=== PATIENT | female | born 1945 | race Caucasian/White ===

== ENCOUNTER 2021-06-13 10:45 | Inpatient (IN) ==
[2021-06-13 11:34] LABS: Basophils % 0.3 %; Eosinophils # 0.3 K/mcL (0.0-0.6); Eosinophils % 2.8 %; Hematocrit 38.7 % (35.3-44.9); Immature Granulocytes % 0.2 % (0-4); Lymphocytes # 2.2 K/mcL (0.6-4.6); Mean Corpuscular HGB Conc 33.6 g/dL (31.6-35.5); Mean Corpuscular Hemoglobin 29.5 pg (28.0-33.3); Mean Corpuscular Volume 87.8 fL (83.0-100.0); Monocytes # 0.5 K/mcL (0.0-1.3); Monocytes % 5.8 %; Neutrophils # 5.8 K/mcL (1.6-8.9); Platelet Count 364 K/mcL (140-400); Red Blood Count 4.41 M/mcL (3.82-4.97); Red Cell Distribution Width 12.9 % (11.5-14.5); Segmented Neutrophils % 65.9 %; White Blood Count 8.8 K/mcL (4.3-11.1)
[2021-06-13 11:48] LABS: Prothrombin Time 11.4 Seconds (9.4-12.1)
[2021-06-13 11:51] LABS: Activated Partial Thrombo Time 28.4 Seconds (26.0-36.0)
[2021-06-13 11:58] LABS: BUN/Creatinine Ratio 18 (6-26); Blood Urea Nitrogen 17 mg/dL (8-23); Calcium 10.2 mg/dL (8.6-10.3); Carbon Dioxide 24 mEq/L (23-29); Chloride 94 mEq/L (98-107); Creatine Kinase 112 Units/L (30-223); Glucose 147 mg/dL (70-105); Osmolality,Calculated 272 (280-300); Potassium 3.7 mEq/L (3.5-5.1); Sodium 129 mEq/L (136-145); eGFR For African Americans > 60 (> 60); eGFR For Non-African Americans 57 (> 60)
[2021-06-13] MEDS ORDERED: 0.9 % Sodium Chloride 1,000 ML IVC ONE (12:07)
[2021-06-13 12:11] LABS: Troponin I 0.16 ng/mL (< 0.04)
[2021-06-13] MEDS ORDERED: *HR* Heparin 5,000 UNIT/ML VIAL IVP ONE (12:13)
[2021-06-13] MEDS ORDERED: *HR* Heparin 5,000 UNIT/ML VIAL IVP PRN ×2 (12:13)
[2021-06-13] MEDS ORDERED: Perflutren Lipid Microsphere 1.3 ML in 0.9 % Sodium Chloride 8.7 ML IVP PRN (12:29)
[2021-06-13] MEDS: Heparin 25,000UNIT/250ML 1/2NS 25,000 UNIT/250 ML IV.SOLN IVC SCH ×2 (12:51→22:18)
[2021-06-13] MEDS ORDERED: D5% in Water 1,000 ML IVC PRN (13:36)
[2021-06-13] MEDS ORDERED: Naloxone 0.4 MG/ML INJ IVP PRN (13:36)
[2021-06-13] MEDS ORDERED: Dextrose Gel 15 GM/37.5 ML TUBE PO PRN ×2 (13:36)
[2021-06-13] MEDS ORDERED: Acetaminophen 325 MG TABLET PO PRN (13:36)
[2021-06-13] MEDS ORDERED: *HR* Dextrose 50 % in Water (Syg) 50 ML SYRINGE IVP PRN (13:36)
[2021-06-13] MEDS ORDERED: Nitroglycerin 0.4 MG TAB.SUBL SL PRN (13:42)
[2021-06-13] MEDS: Isosorbide MONOnitrate (24 HR) 30 MG TAB.ER.24H PO SCH (14:13)
[2021-06-13] MEDS: Aspirin 81 MG TAB.CHEW PO SCH (14:17)
[2021-06-13] MEDS: Metoprolol XL (24 HR) Succ 25 MG TAB.ER.24H PO SCH (14:17)
[2021-06-13] MEDS ORDERED: ISOVUE-370 200 ML INFUS..BTL ONE (15:18)
[2021-06-13] MEDS ORDERED: Heparin 1,000 UNITS/500 mL 500 ML ONE (15:18)
[2021-06-13] MEDS ORDERED: 0.9 % Sodium Chloride 1,000 ML ONE (15:18)
[2021-06-13] MEDS ORDERED: *HR* Heparin 10,000 UNIT/10 ML VIAL ONE (15:18)
[2021-06-13] MEDS ORDERED: Nitroglycerin 1,000 MCG/5 ML VIAL IV ONE (15:18)
[2021-06-13] MEDS ORDERED: *HR* Midazolam HCl 2 MG/2 ML VIAL ONE ×2 (15:51→16:25)
[2021-06-13] MEDS ORDERED: *HR* FentaNYL (PF) 100 MCG/2 ML VIAL ONE (15:51)
[2021-06-13] MEDS: Insulin LISPRO 300 UNITS/3 ML VIAL SUBQ SCH (18:27)
[2021-06-13] MEDS: cloNIDine HCL 0.1 MG TABLET PO SCH (21:40)
[2021-06-13] MEDS: 0.9 % Sodium Chloride 1,000 ML IVC SCH (22:19)
[2021-06-13] MEDS: Budesonide/Formoterol 160/4.5 1 PUFF INH IH SCH (22:34)
[2021-06-14 05:18] LABS: Basophils # 0.1 K/mcL (0.0-0.2); Basophils % 0.6 %; Eosinophils # 0.4 K/mcL (0.0-0.6); Eosinophils % 4.3 %; Hematocrit 33.3 % (35.3-44.9); Immature Granulocytes % 0.4 % (0-4); Lymphocytes # 2.4 K/mcL (0.6-4.6); Lymphocytes % 28.5 %; Mean Corpuscular HGB Conc 32.7 g/dL (31.6-35.5); Mean Corpuscular Hemoglobin 29.2 pg (28.0-33.3); Mean Corpuscular Volume 89.3 fL (83.0-100.0); Mean Platelet Volume 10.3 fL (9.4-12.4); Monocytes # 0.7 K/mcL (0.0-1.3); Monocytes % 8.1 %; Neutrophils # 4.8 K/mcL (1.6-8.9); Platelet Count 306 K/mcL (140-400); Red Blood Count 3.73 M/mcL (3.82-4.97); Red Cell Distribution Width 13.1 % (11.5-14.5); Segmented Neutrophils % 58.1 %; White Blood Count 8.3 K/mcL (4.3-11.1)
[2021-06-14 05:20] LABS: Hemoglobin 10.9 g/dL (11.5-15.4)
[2021-06-14 05:25] LABS: BUN/Creatinine Ratio 15 (6-26); Blood Urea Nitrogen 12 mg/dL (8-23); Calcium 8.7 mg/dL (8.6-10.3); Carbon Dioxide 20 mEq/L (23-29); Chloride 104 mEq/L (98-107); Chol/HDL Ratio 3.3 (0-4.9); Cholesterol 181 mg/dL (< 200); Glucose 148 mg/dL (70-105); HDL Cholesterol 55 mg/dL (40-59); LDL Cholesterol,Calculated 101 mg/dL (< 100); Osmolality,Calculated 279 (280-300); Potassium 3.6 mEq/L (3.5-5.1); Sodium 133 mEq/L (136-145); Triglycerides 124 mg/dL (< 150); eGFR For African Americans > 60 (> 60); eGFR For Non-African Americans > 60 (> 60)
[2021-06-14 06:11] LABS: Troponin I 0.39 ng/mL (< 0.04)
[2021-06-14] MEDS: Insulin LISPRO 300 UNITS/3 ML VIAL SUBQ SCH ×3 (07:47→15:30)
[2021-06-14] MEDS: Aspirin 81 MG TAB.CHEW PO SCH (07:48)
[2021-06-14] MEDS: Isosorbide MONOnitrate (24 HR) 30 MG TAB.ER.24H PO SCH (07:48)
[2021-06-14] MEDS: Metoprolol XL (24 HR) Succ 25 MG TAB.ER.24H PO SCH (07:49)
[2021-06-14] MEDS: Nicotine 21 MG PATCH.TD24 TD SCH (07:49)
[2021-06-14] MEDS: 0.9 % Sodium Chloride 1,000 ML IVC SCH (08:15)
[2021-06-14 08:55] LABS: Estimated Average Glucose 169 mg/dl; Hemoglobin A1C 7.5 %
[2021-06-14] MEDS ORDERED: Metoprolol XL (24 HR) Succ 25 MG TAB.ER.24H PO SCH (09:00)
[2021-06-14] MEDS: Budesonide/Formoterol 160/4.5 1 PUFF INH IH SCH ×2 (10:13→19:55)
[2021-06-14] MEDS: AMILoride/HCTZ 5-50mg 1 EACH TABLET PO SCH (13:50)
[2021-06-14] MEDS: cloNIDine HCL 0.1 MG TABLET PO SCH (21:01)
[2021-06-14] MEDS: Heparin 25,000UNIT/250ML 1/2NS 25,000 UNIT/250 ML IV.SOLN IVC SCH (23:59)
[2021-06-15 06:46] LABS: Basophils % 0.5 %; Eosinophils # 0.3 K/mcL (0.0-0.6); Eosinophils % 3.2 %; Hematocrit 32.8 % (35.3-44.9); Hemoglobin 10.8 g/dL (11.5-15.4); Immature Granulocytes % 0.2 % (0-4); Lymphocytes # 2.5 K/mcL (0.6-4.6); Lymphocytes % 30.9 %; Mean Corpuscular HGB Conc 32.9 g/dL (31.6-35.5); Mean Corpuscular Hemoglobin 29.7 pg (28.0-33.3); Mean Corpuscular Volume 90.1 fL (83.0-100.0); Mean Platelet Volume 10.8 fL (9.4-12.4); Monocytes # 0.6 K/mcL (0.0-1.3); Monocytes % 7.4 %; Neutrophils # 4.8 K/mcL (1.6-8.9); Platelet Count 265 K/mcL (140-400); Red Blood Count 3.64 M/mcL (3.82-4.97); Red Cell Distribution Width 13.2 % (11.5-14.5); Segmented Neutrophils % 57.8 %; White Blood Count 8.2 K/mcL (4.3-11.1)
[2021-06-15 06:53] LABS: BUN/Creatinine Ratio 16 (6-26); Blood Urea Nitrogen 14 mg/dL (8-23); Calcium 9.2 mg/dL (8.6-10.3); Carbon Dioxide 20 mEq/L (23-29); Chloride 102 mEq/L (98-107); Glucose 159 mg/dL (70-105); Osmolality,Calculated 278 (280-300); Potassium 3.6 mEq/L (3.5-5.1); Sodium 132 mEq/L (136-145); eGFR For African Americans > 60 (> 60); eGFR For Non-African Americans > 60 (> 60)
[2021-06-15] MEDS: Budesonide/Formoterol 160/4.5 1 PUFF INH IH SCH ×2 (08:02→20:36)
[2021-06-15] MEDS: Isosorbide MONOnitrate (24 HR) 30 MG TAB.ER.24H PO SCH (09:02)
[2021-06-15] MEDS: Nicotine 21 MG PATCH.TD24 TD SCH (09:02)
[2021-06-15] MEDS: Metoprolol XL (24 HR) Succ 25 MG TAB.ER.24H PO SCH (09:02)
[2021-06-15] MEDS: Aspirin 81 MG TAB.CHEW PO SCH ×2 (09:05→11:00)
[2021-06-15] MEDS: AMILoride/HCTZ 5-50mg 1 EACH TABLET PO SCH (09:09)
[2021-06-15] MEDS: Insulin LISPRO 300 UNITS/3 ML VIAL SUBQ SCH ×3 (10:51→15:23)
[2021-06-15] MEDS: cloNIDine HCL 0.1 MG TABLET PO SCH (20:23)
[2021-06-15] MEDS ORDERED: Albuterol 2.5 MG/3 ML NEBULIZER IH ONE (21:01)
[2021-06-15] MEDS ORDERED: methylPREDNISolone 125 MG/2 ML VIAL IVP ONE (21:05)
[2021-06-15] MEDS ORDERED: Nitroglycerin 1 INCH/GM PACKET TP ONE (21:18)
[2021-06-15] MEDS ORDERED: *HR* LORazepam 2 MG/ML VIAL IVP ONE (21:35)
[2021-06-15] MEDS ORDERED: *HR* LORazepam 2 MG/ML VIAL ONE (21:35)
[2021-06-15] MEDS ORDERED: Isovue-370 500 ML BOTTLE IVP ONE (21:36)
[2021-06-15] MEDS: Ondansetron 4 MG/2 ML VIAL IVP PRN (21:50)
[2021-06-15] MEDS ORDERED: Furosemide 40 MG/4 ML VIAL IVP ONE (22:32)
[2021-06-16 01:53] LABS: Basophils % 0.1 %; Eosinophils % 0.1 %; Hematocrit 37.1 % (35.3-44.9); Hemoglobin 12.3 g/dL (11.5-15.4); Immature Granulocytes % 0.5 % (0-4); Lymphocytes # 0.8 K/mcL (0.6-4.6); Lymphocytes % 5.5 %; Mean Corpuscular HGB Conc 33.2 g/dL (31.6-35.5); Mean Corpuscular Hemoglobin 29.6 pg (28.0-33.3); Mean Corpuscular Volume 89.4 fL (83.0-100.0); Mean Platelet Volume 10.6 fL (9.4-12.4); Monocytes # 0.4 K/mcL (0.0-1.3); Monocytes % 2.7 %; Neutrophils # 13.7 K/mcL (1.6-8.9); Platelet Count 341 K/mcL (140-400); Red Blood Count 4.15 M/mcL (3.82-4.97); Red Cell Distribution Width 13.2 % (11.5-14.5); Segmented Neutrophils % 91.1 %
[2021-06-16 02:05] LABS: BUN/Creatinine Ratio 20 (6-26); Blood Urea Nitrogen 18 mg/dL (8-23); Calcium 9.3 mg/dL (8.6-10.3); Carbon Dioxide 18 mEq/L (23-29); Chloride 98 mEq/L (98-107); Glucose 286 mg/dL (70-105); Osmolality,Calculated 278 (280-300); Potassium 3.9 mEq/L (3.5-5.1); Sodium 128 mEq/L (136-145); eGFR For African Americans > 60 (> 60); eGFR For Non-African Americans 59 (> 60)
[2021-06-16] MEDS: Heparin 25,000UNIT/250ML 1/2NS 25,000 UNIT/250 ML IV.SOLN IVC SCH (02:05)
[2021-06-16] MEDS: Insulin LISPRO 300 UNITS/3 ML VIAL SUBQ SCH ×3 (07:54→17:42)
[2021-06-16] MEDS ORDERED: Perflutren Lipid Microsphere 1.3 ML in 0.9 % Sodium Chloride 8.7 ML IVP PRN (08:49)
[2021-06-16] MEDS ORDERED: Furosemide 40 MG/4 ML VIAL IVP SCH (09:00)
[2021-06-16] MEDS: Levalbuterol Neb 1.25 MG/3 ML IH SCH ×3 (10:32→19:54)
[2021-06-16] MEDS: Budesonide/Formoterol 160/4.5 1 PUFF INH IH SCH (10:36)
[2021-06-16] MEDS: Chlorhexidine Rinse 15 ML MOUTHWASH MM SCH ×2 (10:48→21:36)
[2021-06-16] MEDS: *HR* LORazepam 2 MG/ML VIAL IVP PRN ×2 (10:52→19:06)
[2021-06-16] MEDS: Metoprolol XL (24 HR) Succ 25 MG TAB.ER.24H PO SCH (10:53)
[2021-06-16] MEDS: Isosorbide MONOnitrate (24 HR) 30 MG TAB.ER.24H PO SCH (10:53)
[2021-06-16] MEDS: AMILoride/HCTZ 5-50mg 1 EACH TABLET PO SCH (10:54)
[2021-06-16] MEDS: Aspirin 81 MG TAB.CHEW PO SCH (11:01)
[2021-06-16] MEDS: Nicotine 21 MG PATCH.TD24 TD SCH (12:00)
[2021-06-16] MEDS: cloNIDine HCL 0.1 MG TABLET PO SCH (21:37)
[2021-06-16] MEDS: Insulin DETEMIR 100 UNIT/ML X5UNITS SUBQ SCH (21:46)
[2021-06-17 01:32] LABS: Basophils % 0.1 %; Hematocrit 32.8 % (35.3-44.9); Hemoglobin 11.2 g/dL (11.5-15.4); Immature Granulocytes % 0.4 % (0-4); Lymphocytes % 13.5 %; Mean Corpuscular HGB Conc 34.1 g/dL (31.6-35.5); Mean Corpuscular Hemoglobin 29.9 pg (28.0-33.3); Mean Corpuscular Volume 87.5 fL (83.0-100.0); Mean Platelet Volume 10.7 fL (9.4-12.4); Monocytes % 6.5 %; Neutrophils # 11.8 K/mcL (1.6-8.9); Platelet Count 329 K/mcL (140-400); Red Blood Count 3.75 M/mcL (3.82-4.97); Red Cell Distribution Width 13.3 % (11.5-14.5); Segmented Neutrophils % 79.5 %; White Blood Count 14.9 K/mcL (4.3-11.1)
[2021-06-17 01:49] LABS: Calcium 9.5 mg/dL (8.6-10.3); Potassium 3.7 mEq/L (3.5-5.1)
[2021-06-17] MEDS: Levalbuterol Neb 1.25 MG/3 ML IH SCH ×4 (03:43→20:11)
[2021-06-17] MEDS: Heparin 25,000UNIT/250ML 1/2NS 25,000 UNIT/250 ML IV.SOLN IVC SCH (04:07)
[2021-06-17] MEDS ORDERED: Aspirin 81 MG TAB.CHEW PO ONE (06:00)
[2021-06-17] MEDS ORDERED: CeFAZolin Syr 2,000MG/20 ML 2,000 MG/20 ML SYRINGE IVPB ONE (07:00)
[2021-06-17] MEDS: Isosorbide MONOnitrate (24 HR) 30 MG TAB.ER.24H PO SCH (08:13)
[2021-06-17] MEDS: Aspirin 81 MG TAB.CHEW PO SCH (08:13)
[2021-06-17] MEDS: AMILoride/HCTZ 5-50mg 1 EACH TABLET PO SCH (08:13)
[2021-06-17] MEDS: Metoprolol XL (24 HR) Succ 25 MG TAB.ER.24H PO SCH (08:14)
[2021-06-17] MEDS: Nicotine 21 MG PATCH.TD24 TD SCH (08:16)
[2021-06-17] MEDS: Insulin LISPRO 300 UNITS/3 ML VIAL SUBQ SCH ×3 (08:28→17:58)
[2021-06-17] MEDS: *HR* LORazepam 2 MG/ML VIAL IVP PRN ×2 (08:37→21:25)
[2021-06-17] MEDS ORDERED: Metoprolol XL (24 HR) Succ 25 MG TAB.ER.24H PO ONE (09:00)
[2021-06-17] MEDS: Insulin DETEMIR 100 UNIT/ML X5UNITS SUBQ SCH (21:19)
[2021-06-17] MEDS: cloNIDine HCL 0.1 MG TABLET PO SCH (21:19)
[2021-06-18 00:32] LABS: Basophils % 0.1 %; Eosinophils # 0.1 K/mcL (0.0-0.6); Eosinophils % 0.9 %; Hematocrit 30.3 % (35.3-44.9); Hemoglobin 10.2 g/dL (11.5-15.4); Immature Granulocytes % 0.2 % (0-4); Lymphocytes # 2.9 K/mcL (0.6-4.6); Lymphocytes % 27.1 %; Mean Corpuscular HGB Conc 33.7 g/dL (31.6-35.5); Mean Corpuscular Hemoglobin 29.7 pg (28.0-33.3); Mean Corpuscular Volume 88.1 fL (83.0-100.0); Mean Platelet Volume 10.5 fL (9.4-12.4); Monocytes # 0.9 K/mcL (0.0-1.3); Monocytes % 8.8 %; Neutrophils # 6.7 K/mcL (1.6-8.9); Platelet Count 287 K/mcL (140-400); Red Blood Count 3.44 M/mcL (3.82-4.97); Red Cell Distribution Width 13.5 % (11.5-14.5); Segmented Neutrophils % 62.9 %; White Blood Count 10.6 K/mcL (4.3-11.1)
[2021-06-18 04:10] LABS: BUN/Creatinine Ratio 36 (6-26); Blood Urea Nitrogen 35 mg/dL (8-23); Calcium 9.5 mg/dL (8.6-10.3); Carbon Dioxide 23 mEq/L (23-29); Chloride 96 mEq/L (98-107); Glucose 168 mg/dL (70-105); Osmolality,Calculated 282 (280-300); Potassium 3.8 mEq/L (3.5-5.1); Sodium 130 mEq/L (136-145); eGFR For African Americans > 60 (> 60); eGFR For Non-African Americans 56 (> 60)
[2021-06-18] MEDS: Levalbuterol Neb 1.25 MG/3 ML IH SCH ×4 (04:14→21:19)
[2021-06-18] MEDS: Isosorbide MONOnitrate (24 HR) 30 MG TAB.ER.24H PO SCH (08:21)
[2021-06-18] MEDS: Aspirin 81 MG TAB.CHEW PO SCH (08:21)
[2021-06-18] MEDS: AMILoride/HCTZ 5-50mg 1 EACH TABLET PO SCH (08:21)
[2021-06-18] MEDS: Nicotine 21 MG PATCH.TD24 TD SCH (08:21)
[2021-06-18] MEDS: Metoprolol XL (24 HR) Succ 25 MG TAB.ER.24H PO SCH (08:21)
[2021-06-18] MEDS: Insulin LISPRO 300 UNITS/3 ML VIAL SUBQ SCH ×3 (08:22→16:47)
[2021-06-18] MEDS ORDERED: Furosemide 40 MG/4 ML VIAL IVP SCH (10:15)
[2021-06-18] MEDS: Heparin 25,000UNIT/250ML 1/2NS 25,000 UNIT/250 ML IV.SOLN IVC SCH (16:40)
[2021-06-18] MEDS: Insulin DETEMIR 100 UNIT/ML X5UNITS SUBQ SCH (23:10)
[2021-06-18] MEDS: cloNIDine HCL 0.1 MG TABLET PO SCH (23:10)
[2021-06-19] MEDS: Levalbuterol Neb 1.25 MG/3 ML IH SCH ×3 (03:55→16:20)
[2021-06-19] MEDS: Ondansetron 4 MG/2 ML VIAL IVP PRN (06:30)
[2021-06-19] MEDS ORDERED: NiCARdipine 2.5 MG/10 ML Syringe IVPB ONE (06:37)
[2021-06-19] MEDS ORDERED: *HR* FentaNYL (PF) 1,000 MCG/20 ML VIAL ONE (06:49)
[2021-06-19] MEDS ORDERED: *HR* Midazolam HCl 5 MG/5 ML VIAL IVP ONE (06:49)
[2021-06-19] MEDS ORDERED: *HR* Rocuronium Bromide 50 MG/5 ML VIAL ONE (06:52)
[2021-06-19] MEDS ORDERED: *HR* Etomidate 20 MG/10 ML AMPUL IVP ONE (06:53)
[2021-06-19] MEDS ORDERED: Famotidine 20 MG/2 ML VIAL ONE (06:53)
[2021-06-19] MEDS ORDERED: Protamine Sulfate 50 MG/5 ML VIAL IVP ONE (06:58)
[2021-06-19] MEDS ORDERED: CeFAZolin 2,000 MG/120 ML BAG IVPB ONE (07:00)
[2021-06-19] MEDS: Insulin LISPRO 300 UNITS/3 ML VIAL SUBQ SCH ×3 (07:34→18:08)
[2021-06-19] MEDS ORDERED: Heparin 15,000 UNIT in 0.9 % Sodium Chloride 500 ML IV ONE (07:45)
[2021-06-19] MEDS ORDERED: Norepinephrine 4 MG in 0.9 % Sodium Chloride 250 ML IVC PRN (07:45)
[2021-06-19] MEDS ORDERED: Dextrose 50 % in Water (Vial) 30 ML, Sodium Bicarbonate 20 MEQ, Lidocaine 1% 5 ML, Insu... TH ONE ×3 (07:45)
[2021-06-19] MEDS ORDERED: Dextrose 50 % in Water (Vial) 30 ML, Sodium Bicarbonate 20 MEQ, Potassium Chloride 15 M... TH ONE (07:45)
[2021-06-19] MEDS: Metoprolol XL (24 HR) Succ 25 MG TAB.ER.24H PO SCH (07:46)
[2021-06-19 07:55] LABS: Basophils % 0.3 %; Eosinophils # 0.4 K/mcL (0.0-0.6); Eosinophils % 3.6 %; Hematocrit 33.4 % (35.3-44.9); Hemoglobin 11.1 g/dL (11.5-15.4); Immature Granulocytes % 0.4 % (0-4); Lymphocytes # 2.1 K/mcL (0.6-4.6); Lymphocytes % 21.7 %; Mean Corpuscular HGB Conc 33.2 g/dL (31.6-35.5); Mean Corpuscular Hemoglobin 29.8 pg (28.0-33.3); Mean Corpuscular Volume 89.5 fL (83.0-100.0); Mean Platelet Volume 11.3 fL (9.4-12.4); Monocytes # 0.8 K/mcL (0.0-1.3); Monocytes % 8.6 %; Neutrophils # 6.3 K/mcL (1.6-8.9); Platelet Count 320 K/mcL (140-400); Red Blood Count 3.73 M/mcL (3.82-4.97); Red Cell Distribution Width 13.2 % (11.5-14.5); Segmented Neutrophils % 65.4 %; White Blood Count 9.6 K/mcL (4.3-11.1)
[2021-06-19 08:00] LABS: BUN/Creatinine Ratio 29 (6-26); Blood Urea Nitrogen 29 mg/dL (8-23); Calcium 9.4 mg/dL (8.6-10.3); Carbon Dioxide 26 mEq/L (23-29); Chloride 94 mEq/L (98-107); Glucose 194 mg/dL (70-105); Osmolality,Calculated 277 (280-300); Potassium 3.9 mEq/L (3.5-5.1); Sodium 128 mEq/L (136-145); eGFR For African Americans > 60 (> 60); eGFR For Non-African Americans 53 (> 60)
[2021-06-19 08:19] LABS: ABG Base Excess -2 mEq/L (-2 to 3); ABG Chloride 95 mEq/L (98-107); ABG Glucose 193 mg/dL (60-95); ABG HCO3 22 mEq/L (21-27); ABG Ionized Calcium 1.16 mmol/L (1.15-1.35); ABG Oxygen Saturation 100 % (95-98); ABG PCO2 34 mmHg (35-45); ABG PH 7.42 pH Units (7.32-7.45); ABG PO2 338 mmHg (85-104); ABG TCO2 23 mEq/L (20-26)
[2021-06-19] MEDS ORDERED: Furosemide 20 MG/2 ML VIAL IVP SCH (09:00)
[2021-06-19 09:36] LABS: ABG Base Excess -2 mEq/L (-2 to 3); ABG Chloride 95 mEq/L (98-107); ABG Glucose 216 mg/dL (60-95); ABG HCO3 23 mEq/L (21-27); ABG Ionized Calcium 1.17 mmol/L (1.15-1.35); ABG Oxygen Saturation 100 % (95-98); ABG PCO2 39 mmHg (35-45); ABG PH 7.38 pH Units (7.32-7.45); ABG PO2 214 mmHg (85-104); ABG TCO2 24 mEq/L (20-26)
[2021-06-19 10:04] LABS: ABG Base Excess -3 mEq/L (-2 to 3); ABG Chloride 90 mEq/L (98-107); ABG Glucose 219 mg/dL (60-95); ABG HCO3 21 mEq/L (21-27); ABG Ionized Calcium 0.84 mmol/L (1.15-1.35); ABG Oxygen Saturation 100 % (95-98); ABG PCO2 32 mmHg (35-45); ABG PH 7.42 pH Units (7.32-7.45); ABG PO2 621 mmHg (85-104); ABG TCO2 22 mEq/L (20-26)
[2021-06-19 10:29] LABS: ABG Base Excess 0 mEq/L (-2 to 3); ABG Chloride 91 mEq/L (98-107); ABG Glucose 203 mg/dL (60-95); ABG HCO3 24 mEq/L (21-27); ABG Ionized Calcium 0.95 mmol/L (1.15-1.35); ABG Oxygen Saturation 100 % (95-98); ABG PCO2 34 mmHg (35-45); ABG PH 7.46 pH Units (7.32-7.45); ABG PO2 553 mmHg (85-104); ABG TCO2 25 mEq/L (20-26)
[2021-06-19 10:45] LABS: ABG Base Excess 1 mEq/L (-2 to 3); ABG Chloride 92 mEq/L (98-107); ABG Glucose 176 mg/dL (60-95); ABG HCO3 26 mEq/L (21-27); ABG Ionized Calcium 1.14 mmol/L (1.15-1.35); ABG Oxygen Saturation 100 % (95-98); ABG PCO2 42 mmHg (35-45); ABG PH 7.39 pH Units (7.32-7.45); ABG PO2 496 mmHg (85-104); ABG TCO2 27 mEq/L (20-26)
[2021-06-19] MEDS ORDERED: Tranexamic Acid 1,000 MG/10 ML VIAL ONE (10:55)
[2021-06-19 11:25] LABS: ABG Base Excess -2 mEq/L (-2 to 3); ABG Chloride 96 mEq/L (98-107); ABG Glucose 162 mg/dL (60-95); ABG HCO3 24 mEq/L (21-27); ABG Ionized Calcium 1.37 mmol/L (1.15-1.35); ABG Oxygen Saturation 99 % (95-98); ABG PCO2 43 mmHg (35-45); ABG PH 7.35 pH Units (7.32-7.45); ABG PO2 132 mmHg (85-104); ABG TCO2 25 mEq/L (20-26)
[2021-06-19] MEDS ORDERED: Potassium Chloride 40 MEQ/200 ML BAG IVPB PRN (11:28)
[2021-06-19] MEDS ORDERED: Insulin Regular, Human 100 UNIT/ML IV PRN (11:28)
[2021-06-19] MEDS ORDERED: *HR* Dextrose 50 % in Water (Syg) 50 ML SYRINGE IVP PRN (11:28)
[2021-06-19] MEDS ORDERED: Calcium Gluconate 1gm/50mL 1 GM/50 ML BAG IVPB PRN (11:30)
[2021-06-19] MEDS ORDERED: Acetaminophen 650 MG RECTAL SUPP RC PRN (11:30)
[2021-06-19] MEDS ORDERED: 0.9 % Sodium Chloride w KCl 20 MEQ/1,000 ML MLS IVC SCH (11:30)
[2021-06-19] MEDS: Albumin Human 5% 12.5 GM/250 ML IV.SOLN IVPB PRN ×2 (12:10→14:30)
[2021-06-19 12:25] LABS: ABG Base Excess 0 mEq/L (-2 to 3); ABG HCO3 24 mEq/L (21-27); ABG Oxygen Saturation 100 % (95-98); ABG PCO2 36 mmHg (35-45); ABG PH 7.44 pH Units (7.32-7.45); ABG PO2 465 mmHg (85-104); ABG TCO2 25 mEq/L (20-26); Blood Gas Modality ASSIST CONTROL; Blood Gas VT 600 cc
[2021-06-19 12:33] LABS: Basophils # 0.1 K/mcL (0.0-0.2); Basophils % 0.3 %; Eosinophils # 0.6 K/mcL (0.0-0.6); Lymphocytes # 3.2 K/mcL (0.6-4.6); Lymphocytes % 15.8 %; Mean Corpuscular HGB Conc 34.1 g/dL (31.6-35.5); Mean Corpuscular Hemoglobin 30.1 pg (28.0-33.3); Mean Corpuscular Volume 88.2 fL (83.0-100.0); Mean Platelet Volume 10.5 fL (9.4-12.4); Monocytes # 1.5 K/mcL (0.0-1.3); Monocytes % 7.4 %; Neutrophils # 14.5 K/mcL (1.6-8.9); Platelet Count 246 K/mcL (140-400); Red Blood Count 3.06 M/mcL (3.82-4.97); Red Cell Distribution Width 13.2 % (11.5-14.5); Segmented Neutrophils % 72.5 %
[2021-06-19 12:34] LABS: Hemoglobin 9.2 g/dL (11.5-15.4)
[2021-06-19 12:49] LABS: INR 1.3; Prothrombin Time 14.2 Seconds (9.4-12.1)
[2021-06-19] MEDS: Pantoprazole 40 MG VIAL IVP SCH (12:59)
[2021-06-19] MEDS: Metoclopramide 10 MG/2 ML VIAL IVP SCH ×3 (13:00→23:39)
[2021-06-19] MEDS: AMILoride/HCTZ 5-50mg 1 EACH TABLET PO SCH (13:03)
[2021-06-19] MEDS: Isosorbide MONOnitrate (24 HR) 30 MG TAB.ER.24H PO SCH (13:03)
[2021-06-19] MEDS: Nicotine 21 MG PATCH.TD24 TD SCH (13:06)
[2021-06-19 13:30] LABS: BUN/Creatinine Ratio 29 (6-26); Blood Urea Nitrogen 25 mg/dL (8-23); Calcium 9.4 mg/dL (8.6-10.3); Carbon Dioxide 24 mEq/L (23-29); Chloride 99 mEq/L (98-107); Glucose 137 mg/dL (70-105); Magnesium 2.5 mg/dL (1.6-2.6); Osmolality,Calculated 279 (280-300); Potassium 4.5 mEq/L (3.5-5.1); Sodium 131 mEq/L (136-145); eGFR For African Americans > 60 (> 60); eGFR For Non-African Americans > 60 (> 60)
[2021-06-19] MEDS: Norepinephrine 4 MG/254 ML IV.SOLN IVC SCH ×2 (14:25→19:18)
[2021-06-19] MEDS: Heparin 25,000UNIT/250ML 1/2NS 25,000 UNIT/250 ML IV.SOLN IVC SCH (14:26)
[2021-06-19] MEDS: niCARdipine 20 MG/200 ML MLS IVC SCH ×4 (15:31→23:33)
[2021-06-19] MEDS: *HR* FentaNYL (PF) 100 MCG/2 ML VIAL IVP PRN ×2 (15:37→19:32)
[2021-06-19] MEDS: *HR* OxyCODONE/APAP 5/325 TABLET PO PRN ×2 (15:53→21:53)
[2021-06-19] MEDS: CeFAZolin 2 GM/120 ML BAG IVPB SCH ×2 (15:54→23:38)
[2021-06-19 17:26] LABS: ABG Base Excess -1 mEq/L (-2 to 3); ABG HCO3 24 mEq/L (21-27); ABG Oxygen Saturation 98 % (95-98); ABG PCO2 40 mmHg (35-45); ABG PH 7.38 pH Units (7.32-7.45); ABG PO2 103 mmHg (85-104); ABG TCO2 25 mEq/L (20-26); Blood Gas Modality CPAP/PS
[2021-06-19] MEDS: cloNIDine HCL 0.1 MG TABLET PO SCH (19:32)
[2021-06-19] MEDS: Insulin DETEMIR 100 UNIT/ML X5UNITS SUBQ SCH (19:32)
[2021-06-19] MEDS: Chlorhexidine Rinse 15 ML MOUTHWASH MM SCH (19:51)
[2021-06-20] MEDS: Levalbuterol Neb 1.25 MG/3 ML IH SCH ×5 (00:15→20:32)
[2021-06-20] MEDS: *HR* OxyCODONE/APAP 5/325 TABLET PO PRN ×3 (03:22→16:19)
[2021-06-20] MEDS: niCARdipine 20 MG/200 ML MLS IVC SCH ×6 (03:26→23:05)
[2021-06-20 03:28] LABS: Basophils % 0.2 %; Eosinophils % 0.2 %; Hematocrit 29.2 % (35.3-44.9); Hemoglobin 9.6 g/dL (11.5-15.4); Immature Granulocytes % 0.5 % (0-4); Lymphocytes # 1.9 K/mcL (0.6-4.6); Lymphocytes % 14.1 %; Mean Corpuscular HGB Conc 32.9 g/dL (31.6-35.5); Mean Corpuscular Hemoglobin 30.1 pg (28.0-33.3); Mean Corpuscular Volume 91.5 fL (83.0-100.0); Mean Platelet Volume 10.8 fL (9.4-12.4); Monocytes # 1.7 K/mcL (0.0-1.3); Monocytes % 12.3 %; Neutrophils # 9.9 K/mcL (1.6-8.9); Platelet Count 245 K/mcL (140-400); Red Blood Count 3.19 M/mcL (3.82-4.97); Red Cell Distribution Width 13.6 % (11.5-14.5); Segmented Neutrophils % 72.7 %; White Blood Count 13.6 K/mcL (4.3-11.1)
[2021-06-20 03:36] LABS: INR 1.2; Prothrombin Time 13.5 Seconds (9.4-12.1)
[2021-06-20 03:52] LABS: BUN/Creatinine Ratio 29 (6-26); Blood Urea Nitrogen 30 mg/dL (8-23); Calcium 9.3 mg/dL (8.6-10.3); Carbon Dioxide 23 mEq/L (23-29); Chloride 101 mEq/L (98-107); Glucose 133 mg/dL (70-105); Magnesium 2.2 mg/dL (1.6-2.6); Osmolality,Calculated 284 (280-300); Sodium 133 mEq/L (136-145); eGFR For African Americans > 60 (> 60); eGFR For Non-African Americans 51 (> 60)
[2021-06-20] MEDS: Norepinephrine 4 MG/254 ML IV.SOLN IVC SCH ×2 (05:03→19:19)
[2021-06-20] MEDS: Metoclopramide 10 MG/2 ML VIAL IVP SCH ×4 (05:11→23:03)
[2021-06-20] MEDS: *HR* FentaNYL (PF) 100 MCG/2 ML VIAL IVP PRN ×2 (05:11→09:22)
[2021-06-20] MEDS: Ondansetron 4 MG/2 ML VIAL IVP PRN (06:31)
[2021-06-20] MEDS: Insulin LISPRO 300 UNITS/3 ML VIAL SUBQ SCH ×3 (08:48→16:38)
[2021-06-20] MEDS: Pantoprazole 40 MG VIAL IVP SCH (09:21)
[2021-06-20] MEDS: Aspirin Enteric Coated 81 MG Tablet PO SCH (09:21)
[2021-06-20] MEDS: Isosorbide MONOnitrate (24 HR) 30 MG TAB.ER.24H PO SCH (09:21)
[2021-06-20] MEDS: AMILoride/HCTZ 5-50mg 1 EACH TABLET PO SCH (09:21)
[2021-06-20] MEDS: Furosemide 20 MG/2 ML VIAL IVP SCH ×2 (09:21→16:19)
[2021-06-20] MEDS: *HR* LORazepam 2 MG/ML VIAL IVP PRN ×2 (09:22→17:39)
[2021-06-20] MEDS: Chlorhexidine Rinse 15 ML MOUTHWASH MM SCH ×2 (09:22→19:48)
[2021-06-20] MEDS: Nicotine 21 MG PATCH.TD24 TD SCH (09:22)
[2021-06-20] MEDS ORDERED: D5% in Water 1,000 ML IVC PRN (09:32)
[2021-06-20] MEDS ORDERED: *HR* Dextrose 50 % in Water (Syg) 50 ML SYRINGE IVP PRN (09:32)
[2021-06-20] MEDS ORDERED: Dextrose Gel 15 GM/37.5 ML TUBE PO PRN ×2 (09:32)
[2021-06-20] MEDS: *HR* Heparin 5,000 UNIT/ML VIAL SQ SCH ×2 (11:09→17:29)
[2021-06-20] MEDS: cloNIDine HCL 0.1 MG TABLET PO SCH ×2 (19:48→19:49)
[2021-06-20] MEDS ORDERED: flumazeniL 0.5 MG/5 ML VIAL IVP ONE ×2 (20:01→20:05)
[2021-06-20 20:19] LABS: ABG Base Excess -3 mEq/L (-2 to 3); ABG HCO3 21 mEq/L (21-27); ABG Oxygen Saturation 100 % (95-98); ABG PCO2 33 mmHg (35-45); ABG PH 7.41 pH Units (7.32-7.45); ABG PO2 427 mmHg (85-104); ABG TCO2 22 mEq/L (20-26)
[2021-06-20] MEDS: Insulin DETEMIR 100 UNIT/ML X5UNITS SUBQ SCH (20:38)
[2021-06-20] MEDS ORDERED: Insulin LISPRO 300 UNITS/3 ML VIAL SUBQ SCH (21:00)
[2021-06-21] MEDS: Norepinephrine 4 MG/254 ML IV.SOLN IVC SCH (03:08)
[2021-06-21] MEDS: Levalbuterol Neb 1.25 MG/3 ML IH SCH ×2 (03:26→10:51)
[2021-06-21 03:28] LABS: Basophils % 0.2 %; Eosinophils % 0.2 %; Hematocrit 27.4 % (35.3-44.9); Hemoglobin 9.1 g/dL (11.5-15.4); Immature Granulocytes % 0.5 % (0-4); Lymphocytes # 2.2 K/mcL (0.6-4.6); Lymphocytes % 16.9 %; Mean Corpuscular HGB Conc 33.2 g/dL (31.6-35.5); Mean Corpuscular Hemoglobin 29.9 pg (28.0-33.3); Mean Corpuscular Volume 90.1 fL (83.0-100.0); Mean Platelet Volume 11.2 fL (9.4-12.4); Monocytes # 1.4 K/mcL (0.0-1.3); Monocytes % 10.3 %; Neutrophils # 9.5 K/mcL (1.6-8.9); Platelet Count 235 K/mcL (140-400); Red Blood Count 3.04 M/mcL (3.82-4.97); Red Cell Distribution Width 13.4 % (11.5-14.5); Segmented Neutrophils % 71.9 %; White Blood Count 13.2 K/mcL (4.3-11.1)
[2021-06-21 03:47] LABS: Calcium 8.8 mg/dL (8.6-10.3); Potassium 4.8 mEq/L (3.5-5.1)
[2021-06-21] MEDS: *HR* Heparin 5,000 UNIT/ML VIAL SQ SCH ×2 (05:16→18:29)
[2021-06-21] MEDS: Metoclopramide 10 MG/2 ML VIAL IVP SCH ×3 (05:16→16:11)
[2021-06-21] MEDS: Furosemide 20 MG/2 ML VIAL IVP SCH ×2 (08:24→16:11)
[2021-06-21] MEDS: Pantoprazole 40 MG VIAL IVP SCH (08:24)
[2021-06-21] MEDS: Nicotine 21 MG PATCH.TD24 TD SCH (08:24)
[2021-06-21] MEDS: Aspirin Enteric Coated 81 MG Tablet PO SCH (08:24)
[2021-06-21] MEDS: Insulin LISPRO 300 UNITS/3 ML VIAL SUBQ SCH ×4 (08:25→20:20)
[2021-06-21] MEDS: Chlorhexidine Rinse 15 ML MOUTHWASH MM SCH ×2 (08:25→20:34)
[2021-06-21] MEDS ORDERED: Naloxone 0.4 MG/ML INJ IVP PRN (10:16)
[2021-06-21] MEDS ORDERED: D5% in Water 1,000 ML IVC PRN (10:16)
[2021-06-21] MEDS ORDERED: Nitroglycerin 0.4 MG TAB.SUBL SL PRN (10:16)
[2021-06-21] MEDS ORDERED: Dextrose Gel 15 GM/37.5 ML TUBE PO PRN ×2 (10:16)
[2021-06-21] MEDS ORDERED: Insulin Regular, Human 100 UNIT/ML IV PRN (10:16)
[2021-06-21] MEDS ORDERED: *HR* OxyCODONE/APAP 5/325 TABLET PO PRN (10:16)
[2021-06-21] MEDS ORDERED: *HR* Dextrose 50 % in Water (Syg) 50 ML SYRINGE IVP PRN (10:16)
[2021-06-21] MEDS ORDERED: Levalbuterol Neb 1.25 MG/3 ML IH SCH (16:00)
[2021-06-21] MEDS: cloNIDine HCL 0.1 MG TABLET PO SCH (20:34)
[2021-06-21] MEDS: Insulin DETEMIR 100 UNIT/ML X5UNITS SUBQ SCH (20:35)
[2021-06-22] MEDS: Metoclopramide 10 MG/2 ML VIAL IVP SCH ×3 (00:27→11:41)
[2021-06-22 02:26] LABS: Calcium 8.6 mg/dL (8.6-10.3); Potassium 3.9 mEq/L (3.5-5.1)
[2021-06-22 02:55] LABS: Basophils % 0.1 %; Eosinophils # 0.1 K/mcL (0.0-0.6); Eosinophils % 0.4 %; Hematocrit 27.9 % (35.3-44.9); Hemoglobin 9.1 g/dL (11.5-15.4); Immature Granulocytes % 0.6 % (0-4); Lymphocytes # 2.7 K/mcL (0.6-4.6); Mean Corpuscular HGB Conc 32.6 g/dL (31.6-35.5); Mean Corpuscular Hemoglobin 29.4 pg (28.0-33.3); Mean Platelet Volume 11.7 fL (9.4-12.4); Monocytes # 1.4 K/mcL (0.0-1.3); Monocytes % 9.8 %; Neutrophils # 9.8 K/mcL (1.6-8.9); Nucleated Red Blood Cells 0.1 /100 WBC (0); Platelet Count 249 K/mcL (140-400); Red Cell Distribution Width 13.3 % (11.5-14.5); Segmented Neutrophils % 70.1 %
[2021-06-22] MEDS: Acetaminophen 325 MG TABLET PO PRN ×2 (05:03→20:30)
[2021-06-22] MEDS: *HR* Heparin 5,000 UNIT/ML VIAL SQ SCH ×2 (05:03→16:49)
[2021-06-22] MEDS: Chlorhexidine Rinse 15 ML MOUTHWASH MM SCH (08:43)
[2021-06-22] MEDS: Aspirin Enteric Coated 81 MG Tablet PO SCH (08:43)
[2021-06-22] MEDS: Insulin LISPRO 300 UNITS/3 ML VIAL SUBQ SCH ×4 (08:45→20:31)
[2021-06-22] MEDS: Nicotine 21 MG PATCH.TD24 TD SCH (08:46)
[2021-06-22] MEDS: Furosemide 20 MG/2 ML VIAL IVP SCH ×2 (08:46→16:49)
[2021-06-22] MEDS ORDERED: Pantoprazole 40 MG VIAL IVP SCH (09:00)
[2021-06-22] MEDS: Famotidine 20 MG TABLET PO SCH ×2 (10:17→20:08)
[2021-06-22] MEDS: Ondansetron 4 MG/2 ML VIAL IVP PRN (10:37)
[2021-06-22] MEDS: cloNIDine HCL 0.1 MG TABLET PO SCH (20:08)
[2021-06-22] MEDS: Insulin DETEMIR 100 UNIT/ML X5UNITS SUBQ SCH (20:31)
[2021-06-23] MEDS: Acetaminophen 325 MG TABLET PO PRN (03:24)
[2021-06-23] MEDS: *HR* Heparin 5,000 UNIT/ML VIAL SQ SCH ×2 (05:29→16:55)
[2021-06-23] MEDS: Famotidine 20 MG TABLET PO SCH ×2 (08:26→20:04)
[2021-06-23] MEDS: Aspirin Enteric Coated 81 MG Tablet PO SCH (08:26)
[2021-06-23] MEDS: Insulin LISPRO 300 UNITS/3 ML VIAL SUBQ SCH ×4 (08:27→20:03)
[2021-06-23] MEDS: Nicotine 21 MG PATCH.TD24 TD SCH (08:27)
[2021-06-23] MEDS: *HR* Metformin 500 MG TABLET PO SCH ×2 (08:32→16:55)
[2021-06-23] MEDS: Ondansetron 4 MG/2 ML VIAL IVP PRN ×2 (08:33→21:25)
[2021-06-23] MEDS: cloNIDine HCL 0.1 MG TABLET PO SCH ×2 (09:33→20:05)
[2021-06-23] MEDS: Insulin DETEMIR 100 UNIT/ML X5UNITS SUBQ SCH (20:05)
[2021-06-24 04:31] LABS: Hematocrit 26.3 % (35.3-44.9); Hemoglobin 8.5 g/dL (11.5-15.4); Mean Corpuscular HGB Conc 32.3 g/dL (31.6-35.5); Mean Corpuscular Volume 89.8 fL (83.0-100.0); Platelet Count 300 K/mcL (140-400); Red Blood Count 2.93 M/mcL (3.82-4.97); Red Cell Distribution Width 13.2 % (11.5-14.5); White Blood Count 13.7 K/mcL (4.3-11.1)
[2021-06-24 04:51] LABS: BUN/Creatinine Ratio 49 (6-26); Blood Urea Nitrogen 50 mg/dL (8-23); Calcium 8.3 mg/dL (8.6-10.3); Carbon Dioxide 29 mEq/L (23-29); Chloride 91 mEq/L (98-107); Glucose 110 mg/dL (70-105); Magnesium 2.1 mg/dL (1.6-2.6); Osmolality,Calculated 278 (280-300); Potassium 3.7 mEq/L (3.5-5.1); Sodium 127 mEq/L (136-145); eGFR For African Americans > 60 (> 60); eGFR For Non-African Americans 53 (> 60)
[2021-06-24] MEDS: *HR* Heparin 5,000 UNIT/ML VIAL SQ SCH ×2 (06:12→17:22)
[2021-06-24] MEDS: Insulin LISPRO 300 UNITS/3 ML VIAL SUBQ SCH ×4 (07:31→21:00)
[2021-06-24] MEDS: Nicotine 21 MG PATCH.TD24 TD SCH (07:42)
[2021-06-24] MEDS: *HR* Metformin 500 MG TABLET PO SCH ×2 (07:42→16:11)
[2021-06-24] MEDS: Aspirin Enteric Coated 81 MG Tablet PO SCH (07:42)
[2021-06-24] MEDS: cloNIDine HCL 0.1 MG TABLET PO SCH (07:42)
[2021-06-24] MEDS: Famotidine 20 MG TABLET PO SCH ×2 (07:52→20:59)
[2021-06-24] MEDS: Ondansetron 4 MG/2 ML VIAL IVP PRN ×2 (07:52→16:12)
[2021-06-24] MEDS ORDERED: cloNIDine HCL 0.1 MG TABLET PO SCH (21:00)
[2021-06-24] MEDS: Insulin DETEMIR 100 UNIT/ML X5UNITS SUBQ SCH (21:01)
[2021-06-24] MEDS: Acetaminophen 325 MG TABLET PO PRN (23:21)
[2021-06-25] MEDS ORDERED: 0.9 % Sodium Chloride 500 ML IVC ONE (01:15)
[2021-06-25 03:54] LABS: Basophils % 0.1 %; Eosinophils # 0.2 K/mcL (0.0-0.6); Eosinophils % 1.2 %; Hematocrit 25.1 % (35.3-44.9); Hemoglobin 8.2 g/dL (11.5-15.4); Immature Granulocytes % 1.1 % (0-4); Lymphocytes % 23.6 %; Mean Corpuscular HGB Conc 32.7 g/dL (31.6-35.5); Mean Corpuscular Hemoglobin 29.2 pg (28.0-33.3); Mean Corpuscular Volume 89.3 fL (83.0-100.0); Mean Platelet Volume 11.1 fL (9.4-12.4); Monocytes # 1.3 K/mcL (0.0-1.3); Monocytes % 9.8 %; Neutrophils # 8.3 K/mcL (1.6-8.9); Platelet Count 300 K/mcL (140-400); Red Blood Count 2.81 M/mcL (3.82-4.97); Red Cell Distribution Width 13.2 % (11.5-14.5); Segmented Neutrophils % 64.2 %; White Blood Count 12.9 K/mcL (4.3-11.1)
[2021-06-25 04:12] LABS: Potassium 3.7 mEq/L (3.5-5.1)
[2021-06-25] MEDS: *HR* Heparin 5,000 UNIT/ML VIAL SQ SCH ×2 (05:45→16:55)
[2021-06-25] MEDS: Aspirin Enteric Coated 81 MG Tablet PO SCH (09:26)
[2021-06-25] MEDS: *HR* Metformin 500 MG TABLET PO SCH ×2 (09:26→16:58)
[2021-06-25] MEDS: Famotidine 20 MG TABLET PO SCH ×2 (09:27→20:17)
[2021-06-25] MEDS: Insulin LISPRO 300 UNITS/3 ML VIAL SUBQ SCH ×4 (09:27→20:17)
[2021-06-25] MEDS: Nicotine 21 MG PATCH.TD24 TD SCH (09:27)
[2021-06-25] MEDS: Ondansetron 4 MG/2 ML VIAL IVP PRN (16:27)
[2021-06-25] MEDS: Insulin DETEMIR 100 UNIT/ML X5UNITS SUBQ SCH (20:17)
[2021-06-25] MEDS ORDERED: cloNIDine HCL 0.1 MG TABLET PO SCH (21:00)
[2021-06-26 04:40] LABS: Basophils % 0.1 %; Eosinophils # 0.1 K/mcL (0.0-0.6); Eosinophils % 0.5 %; Hematocrit 27.6 % (35.3-44.9); Hemoglobin 9.2 g/dL (11.5-15.4); Immature Granulocytes % 1.2 % (0-4); Lymphocytes # 3.3 K/mcL (0.6-4.6); Lymphocytes % 19.4 %; Mean Corpuscular HGB Conc 33.3 g/dL (31.6-35.5); Mean Corpuscular Hemoglobin 29.5 pg (28.0-33.3); Mean Corpuscular Volume 88.5 fL (83.0-100.0); Monocytes # 1.6 K/mcL (0.0-1.3); Monocytes % 9.3 %; Neutrophils # 11.7 K/mcL (1.6-8.9); Platelet Count 401 K/mcL (140-400); Red Blood Count 3.12 M/mcL (3.82-4.97); Red Cell Distribution Width 13.3 % (11.5-14.5); Segmented Neutrophils % 69.5 %; White Blood Count 16.9 K/mcL (4.3-11.1)
[2021-06-26] MEDS: Acetaminophen 325 MG TABLET PO PRN ×2 (04:43→23:58)
[2021-06-26] MEDS: Ondansetron 4 MG/2 ML VIAL IVP PRN ×2 (04:43→14:02)
[2021-06-26 05:00] LABS: BUN/Creatinine Ratio 45 (6-26); Blood Urea Nitrogen 42 mg/dL (8-23); Calcium 8.5 mg/dL (8.6-10.3); Carbon Dioxide 22 mEq/L (23-29); Chloride 92 mEq/L (98-107); Glucose 131 mg/dL (70-105); Osmolality,Calculated 274 (280-300); Sodium 126 mEq/L (136-145); eGFR For African Americans > 60 (> 60); eGFR For Non-African Americans 58 (> 60)
[2021-06-26] MEDS: *HR* Heparin 5,000 UNIT/ML VIAL SQ SCH ×2 (05:37→16:37)
[2021-06-26] MEDS: *HR* Metformin 500 MG TABLET PO SCH ×2 (08:59→16:37)
[2021-06-26] MEDS: AMILoride/HCTZ 5-50mg 1 EACH TABLET PO SCH (08:59)
[2021-06-26] MEDS: Aspirin Enteric Coated 81 MG Tablet PO SCH (08:59)
[2021-06-26] MEDS: lisinopriL 10 MG TABLET PO SCH (08:59)
[2021-06-26] MEDS: Famotidine 20 MG TABLET PO SCH ×2 (08:59→20:14)
[2021-06-26] MEDS ORDERED: hydroCHLOROthiazide 25 MG TABLET PO SCH (09:00)
[2021-06-26] MEDS: Nicotine 21 MG PATCH.TD24 TD SCH (09:00)
[2021-06-26] MEDS: Loratadine 10 MG TABLET PO SCH (09:00)
[2021-06-26] MEDS ORDERED: Spironolactone 25 MG TABLET PO SCH (09:00)
[2021-06-26] MEDS: Insulin LISPRO 300 UNITS/3 ML VIAL SUBQ SCH ×4 (09:00→20:08)
[2021-06-26] MEDS: Insulin DETEMIR 100 UNIT/ML X5UNITS SUBQ SCH (20:14)
[2021-06-27 05:37] LABS: Basophils % 0.2 %; Eosinophils # 0.2 K/mcL (0.0-0.6); Eosinophils % 1.1 %; Hematocrit 28.3 % (35.3-44.9); Hemoglobin 9.1 g/dL (11.5-15.4); Immature Granulocytes % 1.4 % (0-4); Lymphocytes # 3.8 K/mcL (0.6-4.6); Lymphocytes % 20.7 %; Mean Corpuscular HGB Conc 32.2 g/dL (31.6-35.5); Mean Corpuscular Hemoglobin 28.7 pg (28.0-33.3); Mean Corpuscular Volume 89.3 fL (83.0-100.0); Mean Platelet Volume 10.7 fL (9.4-12.4); Monocytes # 1.6 K/mcL (0.0-1.3); Monocytes % 8.7 %; Neutrophils # 12.5 K/mcL (1.6-8.9); Platelet Count 415 K/mcL (140-400); Red Blood Count 3.17 M/mcL (3.82-4.97); Red Cell Distribution Width 13.4 % (11.5-14.5); Segmented Neutrophils % 67.9 %; White Blood Count 18.5 K/mcL (4.3-11.1)
[2021-06-27] MEDS: *HR* Heparin 5,000 UNIT/ML VIAL SQ SCH ×2 (05:37→16:13)
[2021-06-27 06:00] LABS: BUN/Creatinine Ratio 44 (6-26); Blood Urea Nitrogen 40 mg/dL (8-23); Calcium 8.5 mg/dL (8.6-10.3); Carbon Dioxide 25 mEq/L (23-29); Chloride 93 mEq/L (98-107); Glucose 99 mg/dL (70-105); Osmolality,Calculated 274 (280-300); Potassium 3.8 mEq/L (3.5-5.1); Sodium 127 mEq/L (136-145); eGFR For African Americans > 60 (> 60); eGFR For Non-African Americans 60 (> 60)
[2021-06-27] MEDS: lisinopriL 10 MG TABLET PO SCH (07:59)
[2021-06-27] MEDS: Nicotine 21 MG PATCH.TD24 TD SCH (07:59)
[2021-06-27] MEDS: AMILoride/HCTZ 5-50mg 1 EACH TABLET PO SCH (07:59)
[2021-06-27] MEDS: *HR* Metformin 500 MG TABLET PO SCH ×2 (07:59→16:12)
[2021-06-27] MEDS: Aspirin Enteric Coated 81 MG Tablet PO SCH (07:59)
[2021-06-27] MEDS: Famotidine 20 MG TABLET PO SCH ×2 (07:59→20:14)
[2021-06-27] MEDS: Insulin LISPRO 300 UNITS/3 ML VIAL SUBQ SCH ×4 (07:59→20:00)
[2021-06-27] MEDS: Loratadine 10 MG TABLET PO SCH (07:59)
[2021-06-27] MEDS: Metoclopramide 10 MG/2 ML VIAL IVP SCH ×2 (11:54→16:13)
[2021-06-27 15:51] VITALS: O2SAT 100
[2021-06-27] MEDS: Insulin DETEMIR 100 UNIT/ML X5UNITS SUBQ SCH (20:15)
[2021-06-28 03:32] VITALS: BP 108/52; PULSE 86; TEMP 98.4
[2021-06-28] MEDS: Metoclopramide 10 MG/2 ML VIAL IVP SCH ×2 (04:11→04:39)
[2021-06-28 04:20] LABS: Basophils % 0.2 %; Eosinophils # 0.2 K/mcL (0.0-0.6); Eosinophils % 0.9 %; Hematocrit 27.9 % (35.3-44.9); Hemoglobin 8.9 g/dL (11.5-15.4); Immature Granulocytes % 1.6 % (0-4); Lymphocytes # 3.6 K/mcL (0.6-4.6); Lymphocytes % 19.4 %; Mean Corpuscular HGB Conc 31.9 g/dL (31.6-35.5); Mean Corpuscular Volume 90.9 fL (83.0-100.0); Mean Platelet Volume 10.5 fL (9.4-12.4); Monocytes # 1.7 K/mcL (0.0-1.3); Neutrophils # 12.7 K/mcL (1.6-8.9); Nucleated Red Blood Cells 0.1 /100 WBC (0); Platelet Count 455 K/mcL (140-400); Red Blood Count 3.07 M/mcL (3.82-4.97); Red Cell Distribution Width 13.9 % (11.5-14.5); Segmented Neutrophils % 68.9 %; White Blood Count 18.4 K/mcL (4.3-11.1)
[2021-06-28 04:38] LABS: BUN/Creatinine Ratio 43 (6-26); Blood Urea Nitrogen 41 mg/dL (8-23); Calcium 8.3 mg/dL (8.6-10.3); Carbon Dioxide 24 mEq/L (23-29); Chloride 95 mEq/L (98-107); Glucose 139 mg/dL (70-105); Osmolality,Calculated 274 (280-300); Potassium 4.3 mEq/L (3.5-5.1); Sodium 126 mEq/L (136-145); eGFR For African Americans > 60 (> 60); eGFR For Non-African Americans 56 (> 60)
[2021-06-28] MEDS: *HR* Heparin 5,000 UNIT/ML VIAL SQ SCH (04:39)
[2021-06-28] MEDS: Acetaminophen 325 MG TABLET PO PRN (06:16)
[2021-06-28] MEDS: Nicotine 21 MG PATCH.TD24 TD SCH (07:37)
[2021-06-28] MEDS: Aspirin Enteric Coated 81 MG Tablet PO SCH (07:38)
[2021-06-28] MEDS: *HR* Metformin 500 MG TABLET PO SCH (07:38)
[2021-06-28] MEDS: Famotidine 20 MG TABLET PO SCH (07:38)
[2021-06-28] MEDS: Loratadine 10 MG TABLET PO SCH (07:38)
[2021-06-28] MEDS: Insulin LISPRO 300 UNITS/3 ML VIAL SUBQ SCH (07:39)
[2021-06-28] MEDS: lisinopriL 10 MG TABLET PO SCH (07:40)
[2021-06-28] MEDS: AMILoride/HCTZ 5-50mg 1 EACH TABLET PO SCH (07:40)
[2021-06-28] MEDS ORDERED: Famotidine 20 MG TABLET PO SCH (09:00)
[2021-06-28 11:10] LABS: Adenovirus Not Detected (Not Detect); Bordetella Pertussis Not Detected (Not Detect); Chlamydophila pneumoniae Not Detected (Not Detect); Coronavirus 229E Not Detected (Not Detect); Coronavirus HKU1 Not Detected (Not Detect); Coronavirus NL63 Not Detected (Not Detect); Coronavirus OC43 Not Detected (Not Detect); Human Metapneumovirus Not Detected (Not Detect); Human Rhinovirus/Enterovirus Not Detected (Not Detect); Influenza A Subtype 2009 H1 Not Detected (Not Detect); Influenza B Not Detected (Not Detect); Mycoplasma pneumoniae Not Detected (Not Detect); Parainfluenza Virus 1 Not Detected (Not Detect); Parainfluenza Virus 2 Not Detected (Not Detect); Parainfluenza Virus 3 Not Detected (Not Detect); Parainfluenza Virus 4 Not Detected (Not Detect); Respiratory Syncytial Virus Not Detected (Not Detect); SARS-CoV-2 Not Detected (Not Detect)
== END 2021-06-28 10:00 | DRG 233 ==
LOC: EMEROOARM 10:45 → 3BNU 10:45 → SUATTDRO 14:32 → 3BNU 15:10 → 2NNU 06-16 15:06 → 3NENU 06-18 18:22 → ICNU 06-19 07:39 → 2NNU 06-21 22:18
PROVIDERS: ADMIT Student in an Organized Health Care Education/Training Program; ATTEND Internal Medicine

== ENCOUNTER 2021-07-12 18:41 | Inpatient (IN) ==
[2021-07-12] MEDS ORDERED: 0.9 % Sodium Chloride 1,000 ML ONE (23:05)
[2021-07-12] MEDS ORDERED: 0.9 % Sodium Chloride 1,000 ML IVC ONE (23:07)
[2021-07-12] MEDS ORDERED: Naloxone 0.4 MG/ML INJ IVP PRN ×2 (23:18→23:19)
[2021-07-12] MEDS ORDERED: Ondansetron 4 MG/2 ML VIAL IVP PRN (23:19)
[2021-07-13] MEDS ORDERED: Albumin 25% 25gram/100mL 25 GM/100 ML IV.SOLN IVPB ONE ×2 (00:28→05:17)
[2021-07-13] MEDS ORDERED: *HR* Dextrose 50 % in Water (Syg) 50 ML SYRINGE IVP PRN ×2 (00:36→14:10)
[2021-07-13] MEDS ORDERED: Dextrose Gel 15 GM/37.5 ML TUBE PO PRN ×4 (00:36→14:10)
[2021-07-13] MEDS ORDERED: D5% in Water 1,000 ML IVC PRN ×2 (00:36→14:10)
[2021-07-13 00:45] LABS: Basophils % 0.1 %; Hematocrit 24.9 % (35.3-44.9); Hemoglobin 7.8 g/dL (11.5-15.4); Immature Granulocytes % 0.7 % (0-4); Lymphocytes # 1.5 K/mcL (0.6-4.6); Lymphocytes % 10.2 %; Mean Corpuscular HGB Conc 31.3 g/dL (31.6-35.5); Mean Corpuscular Hemoglobin 29.2 pg (28.0-33.3); Mean Corpuscular Volume 93.3 fL (83.0-100.0); Mean Platelet Volume 11.2 fL (9.4-12.4); Monocytes # 1.4 K/mcL (0.0-1.3); Monocytes % 9.2 %; Neutrophils # 11.9 K/mcL (1.6-8.9); Nucleated Red Blood Cells 1.1 /100 WBC (0); Platelet Count 262 K/mcL (140-400); Red Blood Count 2.67 M/mcL (3.82-4.97); Red Cell Distribution Width 15.8 % (11.5-14.5); Segmented Neutrophils % 79.8 %; White Blood Count 14.9 K/mcL (4.3-11.1)
[2021-07-13 00:51] LABS: INR 1.5; Prothrombin Time 16.6 Seconds (9.4-12.1)
[2021-07-13 01:06] LABS: Albumin 3.3 g/dL (3.5-5.7); Albumin/Globulin Ratio 1.2 (1.1-2.2); Bilirubin,Direct 2.1 mg/dL (0.0-0.2); Bilirubin,Indirect 1.1 mg/dL (0.0-1.0); Bilirubin,Total 3.2 mg/dL (0.3-1.0); Globulin 2.8 g/dL (2.4-3.5); Total Protein 6.1 g/dL (6.4-8.9)
[2021-07-13] MEDS ORDERED: Vancomycin 1,500 MG/265 ML IV.SOLN IVPB ONE (02:00)
[2021-07-13] MEDS ORDERED: Vancomycin 1 EACH in 0.9 % Sodium Chloride 250 ML IVPB PRN ×2 (02:00→14:10)
[2021-07-13 04:20] LABS: Hepatitis B Surface Antigen Nonreactive (Nonreactive)
[2021-07-13 04:48] LABS: Hepatitis C Virus Antibody Nonreactive (Nonreactive)
[2021-07-13 04:49] LABS: Hepatitis B Core IgM Nonreactive (Nonreactive)
[2021-07-13 04:50] LABS: Hepatitis A Antibody IgM Nonreactive (Nonreactive)
[2021-07-13] MEDS ORDERED: Cefepime HCl 2,000 MG in Water for inj. (sterile) 20 ML IVP SCH (06:00)
[2021-07-13] MEDS: Insulin LISPRO 300 UNITS/3 ML VIAL SUBQ SCH ×2 (07:47→11:42)
[2021-07-13] MEDS ORDERED: Perflutren Lipid Microsphere 1.3 ML in 0.9 % Sodium Chloride 8.7 ML IVP PRN ×2 (08:43→14:10)
[2021-07-13] MEDS ORDERED: *HR* Heparin 5,000 UNIT/ML VIAL SQ SCH ×2 (09:15→18:00)
[2021-07-13] MEDS: Albumin 25% 25gram/100mL 25 GM/100 ML IV.SOLN IVC SCH ×2 (09:44→11:41)
[2021-07-13] MEDS ORDERED: Norepinephrine 4 MG/254 ML in 0.9% Sodium Chloride IVC ONE (10:05)
[2021-07-13] MEDS ORDERED: Lidocaine 2% Syringe 100 MG/5 ML IVP ONE (10:05)
[2021-07-13] MEDS ORDERED: *HR* Midazolam HCl 2 MG/2 ML VIAL IVP ONE (10:05)
[2021-07-13] MEDS ORDERED: *HR* LORazepam 2 MG/ML VIAL IVP ONE (10:05)
[2021-07-13] MEDS ORDERED: 0.9 % Sodium Chloride 1,000 ML ONE (12:20)
[2021-07-13] MEDS ORDERED: 0.9 % Sodium Chloride 500 ML ONE (12:21)
[2021-07-13] MEDS ORDERED: Albumin 25% 25gram/100mL 25 GM/100 ML IV.SOLN ONE (13:11)
[2021-07-13] MEDS ORDERED: Norepinephrine 4 MG/254 ML IV.SOLN IVC SCH (13:15)
[2021-07-13 13:27] LABS: ABG Base Excess -4 mEq/L (-2 to 3); ABG HCO3 22 mEq/L (21-27); ABG Oxygen Saturation 100 % (95-98); ABG PCO2 43 mmHg (35-45); ABG PH 7.32 pH Units (7.32-7.45); ABG PO2 366 mmHg (85-104); ABG TCO2 23 mEq/L (20-26); Blood Gas Modality ASSIST CONTROL; Blood Gas VT 450 cc
[2021-07-13] MEDS ORDERED: Dexmedetomidine HCl 400 MCG/100 ML MLS IVC ONE (13:28)
[2021-07-13] MEDS ORDERED: Artificial Tears SOLN 15 ML BOTTLE BOTH EYES PRN ×2 (13:34→14:10)
[2021-07-13] MEDS ORDERED: FentaNYL (PF) 1,000 MCG/100 ML IV.SOLN IVC SCH (13:45)
[2021-07-13] MEDS ORDERED: Pantoprazole 40 MG VIAL IVP SCH (13:45)
[2021-07-13] MEDS ORDERED: Dexmedetomidine HCl 400 MCG/100 ML MLS IVC SCH (13:45)
[2021-07-13] MEDS ORDERED: Naloxone 0.4 MG/ML INJ IVP PRN (14:10)
[2021-07-13] MEDS ORDERED: Ondansetron 4 MG/2 ML VIAL IVP PRN (14:10)
[2021-07-13] MEDS: Dexmedetomidine HCl 400 MCG/100 ML MLS IVC SCH ×2 (14:12→18:42)
[2021-07-13] MEDS: FentaNYL (PF) 1,000 MCG/100 ML IV.SOLN IVC SCH ×2 (14:12→22:47)
[2021-07-13] MEDS: Norepinephrine 4 MG/254 ML IV.SOLN IVC SCH ×2 (14:50→19:20)
[2021-07-13] MEDS: Artificial Tears SOLN 15 ML BOTTLE BOTH EYES SCH ×2 (14:52→20:52)
[2021-07-13 15:14] LABS: ABG Base Excess -9 mEq/L (-2 to 3); ABG HCO3 17 mEq/L (21-27); ABG Oxygen Saturation 100 % (95-98); ABG PCO2 35 mmHg (35-45); ABG PO2 290 mmHg (85-104); ABG TCO2 18 mEq/L (20-26); Blood Gas VT 420 cc
[2021-07-13] MEDS ORDERED: Bumetanide 1 MG/4 ML VIAL IVP ONE (15:38)
[2021-07-13] MEDS ORDERED: Bumetanide 12 MG in 0.9 % Sodium Chloride 48 ML IVC SCH (15:45)
[2021-07-13] MEDS ORDERED: Artificial Tears SOLN 15 ML BOTTLE BOTH EYES SCH (16:00)
[2021-07-13] MEDS ORDERED: Insulin LISPRO 300 UNITS/3 ML VIAL SUBQ SCH ×3 (16:30→21:00)
[2021-07-13] MEDS ORDERED: Vasopressin 40 UNIT in D5% in Water 100 ML IVC SCH (16:45)
[2021-07-13] MEDS ORDERED: Phenylephrine 10 MG in 0.9 % Sodium Chloride 250 ML IVC SCH (16:45)
[2021-07-13] MEDS ORDERED: *HR* Heparin 5,000 UNIT/ML VIAL IVP ONE (16:53)
[2021-07-13] MEDS ORDERED: *HR* Heparin 5,000 UNIT/ML VIAL IVP PRN ×2 (16:53)
[2021-07-13] MEDS ORDERED: Heparin 25,000UNIT/250ML 1/2NS 25,000 UNIT/250 ML IV.SOLN IVC SCH (17:00)
[2021-07-13 17:26] LABS: Hematocrit 24.7 % (35.3-44.9); Hemoglobin 7.8 g/dL (11.5-15.4); Mean Corpuscular HGB Conc 31.6 g/dL (31.6-35.5); Mean Corpuscular Hemoglobin 29.5 pg (28.0-33.3); Mean Corpuscular Volume 93.6 fL (83.0-100.0); Mean Platelet Volume 11.4 fL (9.4-12.4); Platelet Count 232 K/mcL (140-400); Red Blood Count 2.64 M/mcL (3.82-4.97); White Blood Count 25.3 K/mcL (4.3-11.1)
[2021-07-13 17:34] LABS: Heparin anti-factor XA UFH 0.22 IU/mL (0.30-0.70); INR 2.3; Prothrombin Time 25.7 Seconds (9.4-12.1)
[2021-07-13 20:09] LABS: ABG Base Excess -14 mEq/L (-2 to 3); ABG HCO3 13 mEq/L (21-27); ABG Oxygen Saturation 100 % (95-98); ABG PCO2 30 mmHg (35-45); ABG PH 7.23 pH Units (7.32-7.45); ABG PO2 190 mmHg (85-104); ABG TCO2 14 mEq/L (20-26); Blood Gas Modality ASSIST CONTROL; Blood Gas VT 420 cc
[2021-07-13] MEDS: Phenylephrine 50 MG in 0.9 % Sodium Chloride 250 ML IVC SCH (20:10)
[2021-07-13] MEDS ORDERED: Chlorhexidine Rinse 15 ML MOUTHWASH MM SCH ×2 (21:00)
[2021-07-13] MEDS: Norepinephrine 8 MG in 0.9 % Sodium Chloride 250 ML IVC SCH (21:57)
[2021-07-13] MEDS: EPINEPHrine 1 MG in D5% in Water 250 ML IVC SCH (22:44)
[2021-07-14 00:09] LABS: ABG Base Excess -17 mEq/L (-2 to 3); ABG HCO3 9 mEq/L (21-27); ABG Oxygen Saturation 100 % (95-98); ABG PCO2 20 mmHg (35-45); ABG PH 7.26 pH Units (7.32-7.45); ABG PO2 358 mmHg (85-104); ABG TCO2 9 mEq/L (20-26)
[2021-07-14] MEDS: Artificial Tears SOLN 15 ML BOTTLE BOTH EYES SCH ×2 (00:10→04:26)
[2021-07-14 00:16] LABS: ABG Ionized Calcium 0.85 mmol/L (1.15-1.35)
[2021-07-14 00:20] LABS: Hematocrit 26.2 % (35.3-44.9); Hemoglobin 7.9 g/dL (11.5-15.4)
[2021-07-14] MEDS ORDERED: Calcium Chloride 2,000 MG in 0.9 % Sodium Chloride 100 ML IVPB ONE (00:30)
[2021-07-14 00:38] LABS: Calcium 7.9 mg/dL (8.6-10.3); Magnesium 2.5 mg/dL (1.6-2.6); Potassium 5.8 mEq/L (3.5-5.1)
[2021-07-14] MEDS: Phenylephrine 50 MG in 0.9 % Sodium Chloride 250 ML IVC SCH ×2 (01:12→06:05)
[2021-07-14] MEDS ORDERED: Sodium Bicarbonate 150 MEQ in D5% in Water 1,000 ML IVC SCH (01:30)
[2021-07-14] MEDS: Norepinephrine 8 MG in 0.9 % Sodium Chloride 250 ML IVC SCH ×2 (02:26→06:59)
[2021-07-14] MEDS: Dexmedetomidine HCl 400 MCG/100 ML MLS IVC SCH (03:13)
[2021-07-14] MEDS: EPINEPHrine 1 MG in D5% in Water 250 ML IVC SCH (03:34)
[2021-07-14 03:41] VITALS: TEMP 98
[2021-07-14] MEDS ORDERED: EPINEPHrine 5 MG in D5% in Water 250 ML IVC SCH (03:45)
[2021-07-14 04:06] LABS: ABG Base Excess -25 mEq/L (-2 to 3); ABG HCO3 5 mEq/L (21-27); ABG Oxygen Saturation 100 % (95-98); ABG PCO2 22 mmHg (35-45); ABG PH 6.96 pH Units (7.32-7.45); ABG PO2 263 mmHg (85-104); ABG TCO2 6 mEq/L (20-26); Blood Gas Modality ASSIST CONTROL; Blood Gas VT 420 cc
[2021-07-14 05:25] LABS: VBG Ionized Calcium 1.01 mmol/L (1.15-1.35)
[2021-07-14 05:29] LABS: Fibrinogen 192 mg/dL (169-393)
[2021-07-14 05:39] LABS: D-Dimer 5802 ng/mLFEU (0-500); INR 3.9; Prothrombin Time 42.7 Seconds (9.4-12.1)
[2021-07-14 05:57] LABS: Activated Partial Thrombo Time > 360.0 Seconds (26.0-36.0)
[2021-07-14 06:04] VITALS: PULSE 62
[2021-07-14 06:43] LABS: Hemoglobin 7.2 g/dL (11.5-15.4); Mean Platelet Volume 11.4 fL (9.4-12.4)
[2021-07-14 06:44] LABS: Mean Corpuscular HGB Conc 27.7 g/dL (31.6-35.5); Mean Corpuscular Hemoglobin 29.6 pg (28.0-33.3); Platelet Count 182 K/mcL (140-400); Red Blood Count 2.43 M/mcL (3.82-4.97); Red Cell Distribution Width 16.4 % (11.5-14.5)
[2021-07-14 07:09] LABS: Calcium 8.4 mg/dL (8.6-10.3); Potassium 6.7 mEq/L (3.5-5.1); Uric Acid 15.1 mg/dL (2.3-7.6)
[2021-07-14] MEDS ORDERED: *HR* LORazepam 2 MG/ML VIAL IVP PRN (07:35)
[2021-07-14] MEDS ORDERED: Cefepime HCl 1,000 MG in Water for inj. (sterile) 10 ML IVP SCH (08:00)
[2021-07-14 08:08] VITALS: BP 48/40; O2SAT 57
[2021-07-14] MEDS ORDERED: Pantoprazole 40 MG VIAL IVP SCH (09:00)
== END 2021-07-14 10:06 | disposition expired | DRG 871 ==
LOC: SUATTDRO 22:37 → 2ANU 22:37 → 2NNU 07-13 06:33 → ICNU 07-13 13:58
PROVIDERS: ADMIT Pharmacist; ATTEND Internal Medicine